=== PATIENT | female | born 1965 | race Caucasian/White ===

== ENCOUNTER 2023-05-05 17:45 | Inpatient (IN) | payer BC ==
[2023-05-05 19:15] VITALS: BMI 28.3
[2023-05-05] MEDS ORDERED: LOPERAMIDE HCL 2 MG CAPSULE PO PRN (20:37)
[2023-05-05] MEDS ORDERED: BISMUTH SUBSALICYLATE 524 MG/30 ML PO PRN (20:37)
[2023-05-05] MEDS ORDERED: guaiFENesin 600 MG TABLET.ER (FP) PO PRN (20:37)
[2023-05-05] MEDS ORDERED: POLYETHYLENE GLYCOL (HEALTHYLAX) 3350 17 GM PACKET PO PRN (20:37)
[2023-05-05] MEDS ORDERED: DICYCLOMINE HCL 10 MG CAPSULE PO PRN (20:37)
[2023-05-05] MEDS ORDERED: ONDANSETRON *ODT* 4 MG TABLET SL PRN (20:37)
[2023-05-05] MEDS ORDERED: NICOTINE POLACRILEX 4 MG GUM BUC PRN (20:37)
[2023-05-05] MEDS ORDERED: BENZOCAINE/MENTHOL (CHLORASEPTIC ) LOZENGE MM PRN (20:37)
[2023-05-05] MEDS ORDERED: IBUPROFEN 400 MG TABLET (FP) PO PRN (20:37)
[2023-05-05] MEDS ORDERED: NALOXONE HCL 0.4 MG/ML VIAL IM PRN (20:37)
[2023-05-05] MEDS ORDERED: NALOXONE HCL (KLOXXADO) 8 MG SPRAY NS PRN (20:37)
[2023-05-05] MEDS ORDERED: BENZONATATE 200 MG CAPSULE PO PRN (20:37)
[2023-05-05] MEDS ORDERED: MAG HYDROX/AL HYDROX/SIMETH 30 ML UNIT-DOSE CUP PO PRN (20:37)
[2023-05-05] MEDS: THIAMINE HCL 100 MG TABLET (FP) PO SCH (21:30)
[2023-05-05] MEDS: ACETAMINOPHEN 325 MG TABLET (FP) PO PRN (21:33)
[2023-05-05] MEDS: MELATONIN 5 MG TABLETS PO SCH (21:34)
[2023-05-06] MEDS: PRENATAL VITAMINS W/ FOLIC ACID TABLET (FP) PO SCH (10:28)
[2023-05-06] MEDS: NICOTINE 21 MG/24 HOURS TOPICAL PATCH TD SCH (10:29)
[2023-05-06] MEDS: IBUPROFEN 600 MG TABLET (FP) PO PRN (10:30)
[2023-05-06] MEDS: hydrOXYzine PAMOATE 25 MG CAPSULE (FP) PO PRN (10:31)
[2023-05-06] MEDS: MAGNESIUM HYDROX 2400MG/30ML ORAL SUSPENSION 30 ML CUP PO PRN (10:31)
[2023-05-06] MEDS ORDERED: chlordiazePOXIDE HCL 25 MG CAPSULE PO PRN (14:37)
[2023-05-06 15:59] LABS: CHLORIDE 115 mmol/L (98-107); POTASSIUM 4.5 mmol/L (3.5-5.1); SODIUM 143 mmol/L (136-145)
[2023-05-06 16:05] LABS: ANION GAP 3 mmol/L (4-13); BLOOD UREA NITROGEN 22.1 mg/dL (7-18); CALCIUM 8.9 mg/dL (8.5-10.1); CO2 25 mmol/L (21-32); GLUCOSE,RANDOM 97 mg/dL (74-106)
[2023-05-06 16:06] LABS: ALBUMIN 2.9 g/dl (3.4-5.0)
[2023-05-06 16:07] LABS: HEMATOCRIT 37.3 % (32.4-45.2); HEMOGLOBIN 12.1 GM/dL (10.7-15.3); MCH 28.7 pg (25.7-33.7); MCHC 32.4 g/dl (32.0-36.0); MEAN CELL VOLUME 88.8 fl (80-96); MEAN PLT VOLUME 8.3 fl (7.5-11.1); PLATELET COUNT 313 10^3/uL (134-434); RDW 15.8 % (11.6-15.6); WHITE BLOOD COUNT 9.3 K/mm3 (4.0-10.0)
[2023-05-06 16:08] LABS: SGPT/ALT 34 U/L (13-61)
[2023-05-06 16:09] LABS: CREATININE 0.8 mg/dL (0.55-1.3); SGOT/AST 20 U/L (15-37)
[2023-05-06 16:10] LABS: BILIRUBIN,TOTAL 0.2 mg/dL (0.2-1); TOT PROT 6.2 g/dl (6.4-8.2)
[2023-05-06 16:11] LABS: ALK PHOS 85 U/L (45-117)
[2023-05-06] MEDS: chlordiazePOXIDE HCL 25 MG CAPSULE PO SCH ×2 (16:42→22:28)
[2023-05-06] MEDS: MELATONIN 5 MG TABLETS PO SCH (22:28)
[2023-05-06] MEDS: THIAMINE HCL 100 MG TABLET (FP) PO SCH (22:28)
[2023-05-06] MEDS: PRAZOSIN HCL 1 MG CAPSULE PO SCH (22:30)
[2023-05-06] MEDS: QUEtiapine FUMARATE 100 MG TABLET (FP) PO SCH (22:30)
[2023-05-06] MEDS: ACETAMINOPHEN 325 MG TABLET (FP) PO PRN (22:31)
[2023-05-07] MEDS: chlordiazePOXIDE HCL 25 MG CAPSULE PO SCH ×4 (05:14→22:09)
[2023-05-07] MEDS: PRENATAL VITAMINS W/ FOLIC ACID TABLET (FP) PO SCH (10:29)
[2023-05-07] MEDS: NICOTINE 21 MG/24 HOURS TOPICAL PATCH TD SCH (10:30)
[2023-05-07] MEDS: ESCITALOPRAM OXALATE 10 MG TABLET PO SCH (10:30)
[2023-05-07] MEDS: MAGNESIUM HYDROX 2400MG/30ML ORAL SUSPENSION 30 ML CUP PO PRN (17:34)
[2023-05-07] MEDS: PRAZOSIN HCL 1 MG CAPSULE PO SCH (22:08)
[2023-05-07] MEDS: MELATONIN 5 MG TABLETS PO SCH (22:08)
[2023-05-07] MEDS: QUEtiapine FUMARATE 100 MG TABLET (FP) PO SCH (22:08)
[2023-05-07] MEDS: hydrOXYzine PAMOATE 25 MG CAPSULE (FP) PO PRN (22:08)
[2023-05-07] MEDS: THIAMINE HCL 100 MG TABLET (FP) PO SCH (22:08)
[2023-05-08] MEDS: chlordiazePOXIDE HCL 10 MG CAPSULE PO SCH ×4 (05:15→22:14)
[2023-05-08] MEDS: NICOTINE 21 MG/24 HOURS TOPICAL PATCH TD SCH (10:08)
[2023-05-08] MEDS: PRENATAL VITAMINS W/ FOLIC ACID TABLET (FP) PO SCH (10:08)
[2023-05-08] MEDS: ESCITALOPRAM OXALATE 10 MG TABLET PO SCH (10:08)
[2023-05-08] MEDS: IBUPROFEN 600 MG TABLET (FP) PO PRN (17:20)
[2023-05-08] MEDS: MAGNESIUM HYDROX 2400MG/30ML ORAL SUSPENSION 30 ML CUP PO PRN (17:20)
[2023-05-08] MEDS: hydrOXYzine PAMOATE 25 MG CAPSULE (FP) PO PRN (17:20)
[2023-05-08] MEDS: QUEtiapine FUMARATE 100 MG TABLET (FP) PO SCH (21:00)
[2023-05-08] MEDS: MELATONIN 5 MG TABLETS PO SCH (21:00)
[2023-05-08] MEDS: THIAMINE HCL 100 MG TABLET (FP) PO SCH (21:00)
[2023-05-08] MEDS: PRAZOSIN HCL 1 MG CAPSULE PO SCH (21:00)
[2023-05-09] MEDS ORDERED: chlordiazePOXIDE HCL 10 MG CAPSULE PO PRN
[2023-05-09] MEDS: chlordiazePOXIDE HCL 10 MG CAPSULE PO SCH ×2 (05:18→17:31)
[2023-05-09] MEDS: PRENATAL VITAMINS W/ FOLIC ACID TABLET (FP) PO SCH (10:10)
[2023-05-09] MEDS: ESCITALOPRAM OXALATE 10 MG TABLET PO SCH (10:12)
[2023-05-09] MEDS: ACETAMINOPHEN 325 MG TABLET (FP) PO PRN ×2 (10:12→22:14)
[2023-05-09] MEDS: hydrOXYzine PAMOATE 25 MG CAPSULE (FP) PO PRN ×2 (10:13→22:13)
[2023-05-09] MEDS: MAGNESIUM HYDROX 2400MG/30ML ORAL SUSPENSION 30 ML CUP PO PRN (10:13)
[2023-05-09] MEDS: NICOTINE 21 MG/24 HOURS TOPICAL PATCH TD SCH (10:17)
[2023-05-09] MEDS: IBUPROFEN 600 MG TABLET (FP) PO PRN (13:47)
[2023-05-09] MEDS: MELATONIN 5 MG TABLETS PO SCH (22:10)
[2023-05-09] MEDS: PRAZOSIN HCL 1 MG CAPSULE PO SCH (22:10)
[2023-05-09] MEDS: QUEtiapine FUMARATE 100 MG TABLET (FP) PO SCH (22:10)
[2023-05-09] MEDS: THIAMINE HCL 100 MG TABLET (FP) PO SCH (22:11)
[2023-05-09] MEDS: BUDESONIDE/FORMETEROL FUMARATE 80/4.5 mcg INHALER IH SCH (22:11)
[2023-05-09] MEDS: MICONAZOLE NITRATE 2% VAGINAL CREAM 45 GM TUBE VG SCH (22:11)
[2023-05-10] MEDS ORDERED: chlordiazePOXIDE HCL 10 MG CAPSULE PO ONE (05:00)
[2023-05-10] MEDS: amLODIPine BESYLATE 10 MG TABLET (FP) PO SCH (10:23)
[2023-05-10] MEDS: ESCITALOPRAM OXALATE 10 MG TABLET PO SCH (10:23)
[2023-05-10] MEDS: PRENATAL VITAMINS W/ FOLIC ACID TABLET (FP) PO SCH (10:23)
[2023-05-10] MEDS: NICOTINE 21 MG/24 HOURS TOPICAL PATCH TD SCH (10:24)
[2023-05-10] MEDS: hydrOXYzine PAMOATE 25 MG CAPSULE (FP) PO PRN ×2 (10:25→17:46)
[2023-05-10] MEDS: BUDESONIDE/FORMETEROL FUMARATE 80/4.5 mcg INHALER IH SCH ×2 (10:26→22:44)
[2023-05-10] MEDS: IBUPROFEN 600 MG TABLET (FP) PO PRN ×2 (10:51→17:46)
[2023-05-10 20:54] VITALS: RESP 16
[2023-05-10] MEDS: THIAMINE HCL 100 MG TABLET (FP) PO SCH (22:43)
[2023-05-10] MEDS: MELATONIN 5 MG TABLETS PO SCH (22:43)
[2023-05-10] MEDS: QUEtiapine FUMARATE 100 MG TABLET (FP) PO SCH (22:44)
[2023-05-10] MEDS: GABAPENTIN 300 MG CAPSULE PO SCH (22:44)
[2023-05-10] MEDS: PRAZOSIN HCL 1 MG CAPSULE PO SCH (22:44)
[2023-05-10] MEDS: MICONAZOLE NITRATE 2% VAGINAL CREAM 45 GM TUBE VG SCH (23:52)
[2023-05-11] MEDS: GABAPENTIN 300 MG CAPSULE PO SCH (06:06)
[2023-05-11 08:58] VITALS: BP 138/81; PULSE 70; TEMP 98
[2023-05-11] MEDS: ESCITALOPRAM OXALATE 10 MG TABLET PO SCH (10:37)
[2023-05-11] MEDS: PRENATAL VITAMINS W/ FOLIC ACID TABLET (FP) PO SCH (10:37)
[2023-05-11] MEDS: NICOTINE 21 MG/24 HOURS TOPICAL PATCH TD SCH (10:37)
[2023-05-11] MEDS: amLODIPine BESYLATE 10 MG TABLET (FP) PO SCH (10:37)
[2023-05-11] MEDS: BUDESONIDE/FORMETEROL FUMARATE 80/4.5 mcg INHALER IH SCH (10:37)
[2023-05-11] MEDS: hydrOXYzine PAMOATE 25 MG CAPSULE (FP) PO PRN (10:47)
== END 2023-05-11 11:55 | disposition home or self-care (01) | DRG 774 ==
LOC: YASAS 17:45 → Y3N 20:48
PROVIDERS: ADMIT Allergy & Immunology; ATTEND Surgery
PROC: HZ2ZZZZ Detoxification Services for Substance Abuse Treatment (ICD-10-PCS; principal; 2023-05-05)
DX: F10.230 Alcohol dependence with withdrawal, uncomplicated (principal); F14.10 Cocaine abuse, uncomplicated; F14.20 Cocaine dependence, uncomplicated; F17.210 Nicotine dependence, cigarettes, uncomplicated; G47.00 Insomnia, unspecified; I10 Essential (primary) hypertension; B37.9 Candidiasis, unspecified; R40.0 Somnolence; Z86.59 Personal history of other mental and behavioral disorders
CPT/HCPCS: 36415; 80053; 80307; 85027; 86780; 87635; 93005; 93010; Q0162